=== PATIENT | male | born 1965 | race African-American/Black ===

== ENCOUNTER 2025-04-03 08:00 | Emergency (ER) | payer MEDICAID, OTHER ==
[~2025-04-03] VITALS: Ht 177.8 cm; Wt 111.0 kg
[2025-04-03 08:03] VITALS: O2SAT 98
[2025-04-03] MEDS ORDERED: AMOX1TAB16 MT (10:16)
[2025-04-03 10:31] VITALS: BP 130/91; PULSE 68; RESP 18; TEMP 37.2; O2SAT 98
== END 2025-04-03 10:33 | disposition home or self-care (01) ==
LOC: ER 08:00
DX: H92.09 Otalgia, unspecified ear (principal)
CPT/HCPCS: 99283